=== PATIENT | female | born 1960 | race Caucasian/White ===

== ENCOUNTER 2017-11-30 07:14 | Observation (INO) | payer BC, MEDICARE ==
[~2017-11-30] VITALS: Ht 170.2 cm; Wt 63.6 kg
[~2017-11-30 07:14] MED LIST: NATESTO7.32 GM TOP; Percocet 5-3251 EACH PO
[2017-11-30 09:07] LABS: BASOPHILS ABSOLUTE AUTO 0.03 K/mm3 (0.00-0.23); BASOPHILS PERCENT AUTO 1 % (0-2); EOSINOPHILS PERCENT AUTO 0 % (0-6); Hematocrit 46.6 % (33.0-51.0); Hemoglobin 15.9 g/dL (11.5-16.0); IMMATURE GRAN ABSOLUTE AUTO 0.01 K/mm3 (0.00-0.10); IMMATURE GRAN PERCENT AUTO 0 % (0-1); LYMPHOCYTES ABSOLUTE AUTO 0.76 K/mm3 (0.84-5.20); LYMPHOCYTES PERCENT AUTO 18 % (21-46); MONOCYTES ABSOLUTE AUTO 0.29 K/mm3 (0.16-1.47); MONOCYTES PERCENT AUTO 7 % (4-13); Mean Corpuscular HGB 31.4 pg (26.0-34.0); Mean Corpuscular HGB Conc 34.1 g/dL (31.5-36.5); Mean Corpuscular Volume 92 fL (80-100); Mean Platelet Volume 10.9 fL (9.1-12.4); NEUTROPHILS ABSOLUTE AUTO 3.22 K/mm3 (1.96-9.15); NEUTROPHILS PERCENT AUTO 75 % (41-73); Platelet Count 180 K/mm3 (150-400); RDW Coefficient Variation 12.4 % (11.7-14.2); RDW Standard Deviation 41.5 fL (35.1-46.3); Red Blood Cell Count 5.07 M/mm3 (3.80-5.20); White Blood Cell Count 4.31 K/mm3 (4.00-11.30)
[2017-11-30 09:12] LABS: Alanine Aminotransfer (ALT/SGP 29 U/L (12-78); Albumin, Blood 3.9 g/dL (3.4-5.0); Alk Phos 82 U/L (50-136); Anion Gap 8 mmol/L (6-16); Aspartate Aminotrans (AST/SGOT 27 U/L (12-37); Blood Urea Nitrogen 10 mg/dL (8-24); Bun/Creatinine Ratio 19.3 (12.0-20.0); CO2, Blood 28 mmol/L (21-32); Calcium, Blood 8.8 mg/dL (8.5-10.1); Chloride, Blood 100 mmol/L (98-108); Creatinine, Blood 0.52 mg/dL (0.40-1.00); Globulin, Blood 3.9 g/dL (2.2-4.0); Glomerular Filtration Rate >60 (60-); Glucose, Blood 102 mg/dL (70-99); Potassium, Blood 4.1 mmol/L (3.5-5.5); Sodium, Blood 136 mmol/L (136-145); Total Protein, Blood 7.8 g/dL (6.4-8.2)
[2017-11-30 10:08] LABS: Source, Urine Clean Catch
[2017-11-30 10:21] LABS: Bilirubin, Urine Neg (Neg); Blood, Urine Neg (Neg); Glucose Qualitative, Urine Neg (Neg); Ketones, Urine Neg (Neg); Leukocyte Esterase, Urine Neg (Neg); Nitrite, Urine Neg (Neg); Protein, Urine Neg (Neg); Specific Gravity, Urine 1.005 (1.003-1.022); Urobilinogen, Urine NORM (Normal); pH, Urine 6.5 (5.0-8.0)
[2017-11-30 10:35] LABS: Color, Urine Yellow (P-Yellow)
[2017-11-30 10:36] LABS: Appearance, Urine Clear (Clear)
[2017-11-30] MEDS ORDERED: PROG100 PO (13:57)
[2017-11-30] MEDS ORDERED: ESTR2 PO (13:57)
[2017-11-30] MEDS ORDERED: VITAMIN D5000 UNI1 PO (13:58)
[2017-11-30] MEDS ORDERED: Hair, Skin & N1 EACH PO (13:58)
[2017-11-30] MEDS ORDERED: FISH OIL 1,0001 EAC1 PO (13:58)
[2017-12-01 05:31] LABS: BASOPHILS ABSOLUTE AUTO 0.02 K/mm3 (0.00-0.23); BASOPHILS PERCENT AUTO 1 % (0-2); EOSINOPHILS PERCENT AUTO 0 % (0-6); Hematocrit 38.6 % (33.0-51.0); Hemoglobin 12.8 g/dL (11.5-16.0); IMMATURE GRAN PERCENT AUTO 0 % (0-1); LYMPHOCYTES ABSOLUTE AUTO 1.08 K/mm3 (0.84-5.20); LYMPHOCYTES PERCENT AUTO 38 % (21-46); MONOCYTES ABSOLUTE AUTO 0.38 K/mm3 (0.16-1.47); MONOCYTES PERCENT AUTO 13 % (4-13); Mean Corpuscular HGB 31.4 pg (26.0-34.0); Mean Corpuscular HGB Conc 33.2 g/dL (31.5-36.5); Mean Platelet Volume 11.2 fL (9.1-12.4); NEUTROPHILS ABSOLUTE AUTO 1.37 K/mm3 (1.96-9.15); NEUTROPHILS PERCENT AUTO 48 % (41-73); Platelet Count 142 K/mm3 (150-400); RDW Coefficient Variation 12.5 % (11.7-14.2); RDW Standard Deviation 43.4 fL (35.1-46.3); Red Blood Cell Count 4.08 M/mm3 (3.80-5.20); White Blood Cell Count 2.85 K/mm3 (4.00-11.30)
[2017-12-01 05:33] LABS: Mean Corpuscular Volume 95 fL (80-100)
[2017-12-01 05:50] LABS: Anion Gap 9 mmol/L (6-16); Blood Urea Nitrogen 11 mg/dL (8-24); Bun/Creatinine Ratio 22.1 (12.0-20.0); CO2, Blood 24 mmol/L (21-32); Chloride, Blood 111 mmol/L (98-108); Glomerular Filtration Rate >60 (60-); Glucose, Blood 73 mg/dL (70-99); Potassium, Blood 3.4 mmol/L (3.5-5.5); Sodium, Blood 144 mmol/L (136-145)
[2017-12-01 05:53] LABS: Calcium, Blood 7.5 mg/dL (8.5-10.1)
== END 2017-12-01 16:00 | disposition home or self-care (01) ==
LOC: ER 07:14 → SURS 07:15 → ER 12:58 → SURS 12:58
PROVIDERS: Internal Medicine; Psychiatry & Neurology Psychiatry
DX: K58.9 Irritable bowel syndrome, unspecified (principal); E87.6 Hypokalemia; Z98.0 Intestinal bypass and anastomosis status; Z90.49 Acquired absence of other specified parts of digestive tract; Z96.643 Presence of artificial hip joint, bilateral; Z96.651 Presence of right artificial knee joint; Z98.890 Other specified postprocedural states; Z88.0 Allergy status to penicillin; Z86.79 Personal history of other diseases of the circulatory system
CPT/HCPCS: 36415; 74177; 80048; 80053; 81003; 82040; 83690; 85025; 93005; 93010; 96361; 96374; 96375; 99285; G0378; J1170; J1650; J2405; J3480; J7030; Q9967

== ENCOUNTER → 2019-04-11 | Outpatient (CLI) | payer BC, MEDICARE ==
[~2019-04-11] MED LIST changes: +ESTR2 PO; +FISH OIL 1,0001 EAC1 PO; +Hair, Skin & N1 EACH PO; +PROG100 PO; +VITAMIN D5000 UNI1 PO
[2019-04-12 08:39] LABS: Candida species (DNA Probe) Positive (NEGATIVE); G. vaginalis (DNA Probe) Negative (NEGATIVE); T. vaginalis (DNA Probe) Negative (NEGATIVE)
== END | disposition home or self-care (01) ==
LOC: LAB SHORT 14:22 → LAB 14:22
PROVIDERS: Obstetrics & Gynecology
DX: N76.0 Acute vaginitis (principal)
CPT/HCPCS: 87480; 87510; 87660

== ENCOUNTER → 2020-01-03 | Outpatient (CLI) | payer BC, MEDICARE | END | disposition home or self-care (01) | LOC: LAB SHORT 08:32 → PLD 08:32 | DX: L82.1 Other seborrheic keratosis (principal) | CPT/HCPCS: 88305 ==

== ENCOUNTER 2020-05-03 08:56 | Observation (INO) | payer BC, MEDICARE ==
[~2020-05-03] VITALS: Ht 157.5 cm; Wt 64.4 kg
[~2020-05-03 08:56] MED LIST changes: -ESTR2 PO; +ESTRADIOL0.5 MG PO
[2020-05-03] MEDS ORDERED: PROG100 PO (09:03)
[2020-05-03] MEDS ORDERED: Striant30 MG (09:04)
--- NOTE | 2020-05-03 14:54 | NUR ---
PER NO IV ASSESS NEEDED AND OK TO CHANGE OXY FROM 5 MG TO 5-10 MG Q 4 HOURS PRN.
--- NOTE | 2020-05-03 16:14 | NUR ---
ARRIVED TO FLOOR AROUND 1400. ALERT. ORIENTED. MEDICATED FOR PAIN UPON ARRIVAL W/GOOD RESULTS. PURWICK TO INNER LABIA AND CONNECTED TO SUCTION AT 40. OBTAINED TWO MORE PURWICKS FROM E.R. THEY ARE A SPECIAL ORDER AND NOT AVAILABLE ON THIS FLOOR. OBTAINED NO IV ASSESS NEEDED PATIENT "HARD STICK" AND IV ASSESS ATTEMPTED 3 TIMES IN E.R. W/LAST ONE INFILTRATING. ALL MEDS P.O. NON DISPLACED LT PELVIC FX. P.T/O.T. ALREADY GONE HOME BY THE TIME PATIENT ARRIVED TO FLOOR. CHEERFUL. COOPERATIVE. POSSIBLE D'C TOMORROW AFTER P.T. EVAL. WCTM
--- NOTE | 2020-05-03 19:10 | NUR ---
LATRELL CHANGED AT END OF THIS SHIFT BY THIS RN
--- NOTE | 2020-05-04 03:10 | NUR ---
SHIFT SUMMARY PATIENT NAUSEOUS X ONE AND PO ZOFRAN GIVEN PER EMAR WITH POSITIVE RESULTS. AXOX 4 AND BEDREST. NO IV ACCESS. OXYCODONE 10MG GIVEN PER EMAR FOR HIP PAIN X TWO. VSS/AFEBRILE. PURWICK TO INNER LABIA AND CONNECTED TO SUCTION. COOPERATIVE WITH CARE. CALL LIGHT IN REACH. BED IN LOWEST POSITION. WILL CONTINUE TO MONITOR UNTIL DAY SHIFT NURSE ASSUMES CARE.
[2020-05-04 05:48] LABS: BASOPHILS ABSOLUTE AUTO 0.03 K/mm3 (0.00-0.23); BASOPHILS PERCENT AUTO 1 % (0-2); EOSINOPHILS ABSOLUTE AUTO 0.01 K/mm3 (0.00-0.68); EOSINOPHILS PERCENT AUTO 0 % (0-6); Hematocrit 44.8 % (33.0-51.0); Hemoglobin 14.4 g/dL (11.5-16.0); IMMATURE GRAN ABSOLUTE AUTO 0.01 K/mm3 (0.00-0.10); IMMATURE GRAN PERCENT AUTO 0 % (0-1); LYMPHOCYTES ABSOLUTE AUTO 0.79 K/mm3 (0.84-5.20); LYMPHOCYTES PERCENT AUTO 15 % (21-46); MONOCYTES ABSOLUTE AUTO 0.32 K/mm3 (0.16-1.47); MONOCYTES PERCENT AUTO 6 % (4-13); Mean Corpuscular HGB 30.8 pg (26.0-34.0); Mean Corpuscular HGB Conc 32.1 g/dL (31.5-36.5); Mean Corpuscular Volume 96 fL (80-100); Mean Platelet Volume 10.2 fL (9.1-12.4); NEUTROPHILS ABSOLUTE AUTO 4.04 K/mm3 (1.96-9.15); NEUTROPHILS PERCENT AUTO 78 % (41-73); Platelet Count 155 K/mm3 (150-400); RDW Coefficient Variation 13.2 % (11.7-14.2); RDW Standard Deviation 46.4 fL (35.1-46.3); Red Blood Cell Count 4.67 M/mm3 (3.80-5.20)
[2020-05-04 06:16] LABS: Anion Gap 8 mmol/L (6-16); Blood Urea Nitrogen 7 mg/dL (8-24); Bun/Creatinine Ratio 13.2 (12.0-20.0); CO2, Blood 22 mmol/L (21-32); Calcium, Blood 8.3 mg/dL (8.5-10.1); Chloride, Blood 106 mmol/L (98-108); Creatinine, Blood 0.53 mg/dL (0.40-1.00); Glomerular Filtration Rate >60 (60-); Glucose, Blood 105 mg/dL (70-99); Potassium, Blood 4.1 mmol/L (3.5-5.5); Sodium, Blood 136 mmol/L (136-145)
--- NOTE | 2020-05-04 08:42 | NUR ---
TALKED TO ABOUT WT BEARING STATIS P.T. WILL NEED AN ORDER. OK TO ORDER WT BEARING TOLERATED
--- NOTE | 2020-05-04 11:49 | NUR ---
PATIENT WITH N/V STS FROM SOY FOOD FROM [facility]. PER DR. FELIX PROMETHAZINE 12.5 MG P.O. Q6 PRN. ADVISED Patrick SINCLAIR IN.
[2020-05-04] MEDS ORDERED: ONDA4 PO (14:48)
[2020-05-04] MEDS ORDERED: OXYC10TA19 PO (14:49)
[2020-05-04] MEDS ORDERED: PROM25 PO (14:50)
--- NOTE | 2020-05-04 15:32 | NUR ---
REVIEW D'C. AWARE HAS MEDS AT [facility] AND HAS HARD COPY FOR NARCS. REVIEW NEW MEDS. AWARE [facility] WILL CALL W/F/U APPT. AWARE IF PAIN WORSENING TO RETURN TO E.R.; OTHERWISE, PAIN SHOULD BE DECREASING. AWARE TO STAND, WALK TOLERATED. S.O. HAS ALREADY GOTTEN A HOSPITAL BED. ANSWER ALL QUESTIONS. IN W/C TO POV W/HULLER OPERATOR.
== END 2020-05-04 15:37 | disposition home health service (06) ==
LOC: ER 08:56 → MEDS 13:04
PROVIDERS: ADMIT Student in an Organized Health Care Education/Training Program
DX: S32.512A Fracture of superior rim of left pubis, initial encounter for closed fracture (principal); S32.592A Other specified fracture of left pubis, initial encounter for closed fracture; W01.0XXA Fall on same level from slipping, tripping and stumbling without subsequent striking against object, initial encounter; K51.90 Ulcerative colitis, unspecified, without complications; M81.0 Age-related osteoporosis without current pathological fracture; Z88.0 Allergy status to penicillin; Z79.899 Other long term (current) drug therapy
CPT/HCPCS: 36415; 72170; 72192; 73552; 80048; 85025; 96372; 96374; 96375; 96376; 97162; 97530; 99285-25; G0378; J1650; J2270; J2405

== ENCOUNTER → 2022-12-01 | Outpatient (CLI) | payer BC, MEDICARE ==
[~2022-12-01] MED LIST changes: +ONDA4 PO; +OXYC10TA19 PO; +PROM25 PO; +Striant30 MG
== END | disposition home or self-care (01) ==
LOC: LAB SHORT 10:40 → LAB 10:40 → PLD 10:40
DX: L57.0 Actinic keratosis (principal)
CPT/HCPCS: 88305

== ENCOUNTER 2024-08-11 15:35 | Emergency (ER) | payer BC, MEDICARE ==
[~2024-08-11] VITALS: Ht 157.5 cm; Wt 61.2 kg
[2024-08-11 15:49] VITALS: BP 166/103
[2024-08-11] MEDS ORDERED: Ketorolac Tromethamine 30mg Vial IM ONE (15:55)
[2024-08-11] MEDS ORDERED: HYDROcodone 5-APAP 325 TAB PO ONE (17:05)
[2024-08-11] MEDS ORDERED: Norco 5-325 Ta1 EACH PO (17:06)
== END 2024-08-11 17:30 | disposition home or self-care (01) ==
LOC: ER 15:35
DX: M25.562 Pain in left knee (principal); W17.81XA Fall down embankment (hill), initial encounter; Z88.0 Allergy status to penicillin; Z79.899 Other long term (current) drug therapy; Z96.643 Presence of artificial hip joint, bilateral; Z96.651 Presence of right artificial knee joint; Z96.612 Presence of left artificial shoulder joint; Z96.611 Presence of right artificial shoulder joint
CPT/HCPCS: 29505; 73562-LT; 96372-59; 99283-25; A9270; J1885